=== PATIENT | male | born 2000 | race African-American/Black ===

== ENCOUNTER 2021-08-01 13:22 | Emergency (ER) | payer BC, MEDICAID ==
[~2021-08-01] VITALS: Ht 193 cm; Wt 109.0 kg
[2021-08-01] MEDS ORDERED: TETANUS, DIPHTHERIA, PERTUSSIS VAC/PF 0.5ML (>10YR OLD) IM ONE (13:45)
[2021-08-01] MEDS ORDERED: IBUPROFEN 800MG TABLET PO ONE (13:45)
[2021-08-01 14:28] VITALS: BP 136/85
[2021-08-01] MEDS ORDERED: BO1 TP (14:53)
[2021-08-01] MEDS ORDERED: IBUP-2029 MT (14:53)
== END 2021-08-01 15:09 | disposition home or self-care (01) ==
LOC: ER 13:22
DX: S60.221A Contusion of right hand, initial encounter (principal); Y93.01 Activity, walking, marching and hiking; Y93.89 Activity, other specified; Y92.89 Other specified places as the place of occurrence of the external cause; Y99.8 Other external cause status
CPT/HCPCS: 73130; 90715; 99283; Z7610

== ENCOUNTER 2022-02-12 21:30 | Emergency (ER) | payer MEDICAID ==
[~2022-02-12] VITALS: Ht 193 cm; Wt 101.0 kg
[~2022-02-12 21:30] MED LIST: BO1 TP; IBUP-2029 MT
[2022-02-12] MEDS ORDERED: HYDROCODONE/ACETAMINOPHEN 10/325MG TABLET PO ONE (22:30)
[2022-02-12 22:34] VITALS: BP 148/76
[2022-02-12] MEDS ORDERED: IBUP-2029 MT (22:59)
== END 2022-02-12 23:26 | disposition home or self-care (01) ==
LOC: ER 21:30
DX: S93.401A Sprain of unspecified ligament of right ankle, initial encounter (principal); Y93.67 Activity, basketball; Y92.9 Unspecified place or not applicable; Z98.890 Other specified postprocedural states
CPT/HCPCS: 73590; 73610; 99284